=== PATIENT | female | born 1965 | race Hispanic/Latino ===

== ENCOUNTER 2025-01-13 12:24 | Emergency (ER) | payer SELFPAY ==
[~2025-01-13] VITALS: Ht 157.5 cm; Wt 85.3 kg
[2025-01-13 13:26] VITALS: TEMP 97.7
[2025-01-13 15:03] VITALS: PULSE 64; RESP 16; O2SAT 100
[2025-01-13] MEDS ORDERED: MECLIZINE HCL12.5 MG PO (15:35)
== END 2025-01-13 15:50 | disposition home or self-care (01) ==
LOC: ER 14:49
DX: R42 Dizziness and giddiness (principal); R11.0 Nausea; F43.9 Reaction to severe stress, unspecified; I10 Essential (primary) hypertension; K21.9 Gastro-esophageal reflux disease without esophagitis
CPT/HCPCS: 99283